=== PATIENT | female | born 1990 | race Caucasian/White ===

== ENCOUNTER → 2020-07-30 | Outpatient (CLI) | payer OTHER ==
[~2020-07-30] MED LIST: COLA100C5 PO; IBUP1TAB7 PO; OXYC1TAB23 PO; PERC5TAB12 PO; PRENTAB9 PO
--- NOTE | 2020-07-30 17:17 | REP ---
INDICATION: SPOTTING AFFECTING PREG IN 1ST TRIMESTER. COMPARISON: None. TECHNIQUE: Multiple transabdominal and endovaginal ultrasonographic images of the gravid uterus. FINDINGS: There is no intrauterine gestational sac. There is no identifiable pole. There is a normal size yolk sac measuring 3.3 mm in diameter. The mean gestational sac diameter is 0.8 cm. This corresponds to a gestational age of 4 weeks 5 days. By LMP the gestational age is 5 weeks 5 days with an LESTER of 03/27/2021. There is no subchorionic hematoma. There is a 1.8 cm right ovarian follicle, likely a corpus luteum. The left ovary is unremarkable. IMPRESSION: Four week 5 day intrauterine gestation. No pole is identified at this time, however there is a yolk sac. No subchorionic hematoma is identified. Right ovarian corpus luteum. <Electronically signed by Jamil Salcedo > 07/30/20 [id number]
== END ==
LOC: M WHC 13:43
PROVIDERS: ATTEND Obstetrics & Gynecology
DX: O26.851 Spotting complicating pregnancy, first trimester (principal); Z3A.01 Less than 8 weeks gestation of pregnancy

== ENCOUNTER → 2020-07-30 | Outpatient (REF) | payer OTHER | LOC: M PLALAB 08:41 | PROVIDERS: ATTEND Obstetrics & Gynecology | DX: O26.851 Spotting complicating pregnancy, first trimester (principal) ==

== ENCOUNTER → 2020-08-01 | Outpatient (CLI) | payer OTHER ==
[2020-08-01 09:51] LABS: HEMATOCRIT 41.1 % (36.0-47.0); HEMOGLOBIN 13.2 g/dl (12.0-15.5); MEAN CORPUSCULAR HEMOGLOBIN 28.8 pg (27.0-33.0); MEAN CORPUSCULAR HGB CONC 32.1 g/dl (32.0-36.5); MEAN CORPUSCULAR VOLUME 89.7 fl (80.0-96.0); PLATELET COUNT, AUTOMATED 237 10^3/uL (150-450); RED BLOOD COUNT 4.58 10^6/uL (4.00-5.40); WHITE BLOOD COUNT 7.4 10^3/uL (4.0-10.0)
[2020-08-01 10:15] LABS: HCG, SERUM QUALITATIVE NEGATIVE (NEGATIVE)
[2020-08-01 10:31] LABS: ALBUMIN 3.9 GM/DL (3.2-5.2); ALT/SGPT 22 U/L (12-78); BILIRUBIN,TOTAL 0.3 MG/DL (0.2-1.0); BLOOD UREA NITROGEN 13 MG/DL (7-18); CALCIUM LEVEL 8.9 MG/DL (8.5-10.1); CARBON DIOXIDE LEVEL 29 MEQ/L (21-32); CHLORIDE LEVEL 107 MEQ/L (98-107); GLOMERULAR FILTRATION RATE > 60.0 (>60); GLUCOSE, FASTING 83 MG/DL (70-100); HCG, SERUM QUANTITATIVE 22827 MIU/ML; POTASSIUM SERUM 4.7 MEQ/L (3.5-5.1); SODIUM LEVEL 139 MEQ/L (136-145); TOTAL PROTEIN 6.9 GM/DL (6.4-8.2)
== END ==
LOC: M LAB 09:29
PROVIDERS: ATTEND Obstetrics & Gynecology
DX: O26.851 Spotting complicating pregnancy, first trimester (principal); Z3A.00 Weeks of gestation of pregnancy not specified

== ENCOUNTER → 2020-09-13 | Outpatient (REF) | payer OTHER ==
[2020-09-13 14:11] LABS: HEMATOCRIT 40.7 % (36.0-47.0); HEMOGLOBIN 13.4 g/dl (12.0-15.5); MEAN CORPUSCULAR HEMOGLOBIN 29.9 pg (27.0-33.0); MEAN CORPUSCULAR HGB CONC 32.9 g/dl (32.0-36.5); MEAN CORPUSCULAR VOLUME 90.8 fl (80.0-96.0); PLATELET COUNT, AUTOMATED 232 10^3/uL (150-450); RED BLOOD COUNT 4.48 10^6/uL (4.00-5.40); WHITE BLOOD COUNT 8.7 10^3/uL (4.0-10.0)
[2020-09-13 15:18] LABS: CHLAMYDIA DNA AMPLIFICATION NEGATIVE (NEGATIVE); GC DNA AMPLIFICATION NEGATIVE (NEGATIVE)
[2020-09-13 15:34] LABS: HEPATITIS C VIRUS ABY INDEX < 0.0 INDEX (<0.8); HIV 1&2 SCREEN CENTAUR NEGATIVE (NEGATIVE)
== END ==
LOC: M PLALAB 10:03
PROVIDERS: ATTEND Advanced Practice Midwife
DX: O34.211 Maternal care for low transverse scar from previous cesarean delivery (principal)

== ENCOUNTER → 2020-10-19 | Outpatient (CLI) | payer OTHER | LOC: M WHC 20:01 | PROVIDERS: ATTEND Obstetrics & Gynecology | DX: Z53.29 Procedure and treatment not carried out because of patient's decision for other reasons (principal); Z3A.17 17 weeks gestation of pregnancy ==

== ENCOUNTER → 2020-11-08 | Outpatient (CLI) | payer OTHER ==
--- NOTE | 2020-11-08 10:40 | REP ---
INDICATION: ANATOMY. COMPARISON: 07/30/2020. TECHNIQUE: There are multiple sonographic images of the gravid uterus. FINDINGS: There is a single intrauterine gestation in a breech presentation. The placenta is anterior with grade 0 maturity. There is no placenta previa. The placental cord insertion is located centrally on the placenta. There is a three-vessel cord. The cervix measures 3.5 cm length. heart rate is 137 beats per minute. Amniotic fluid volume subjectively is normal. Composite ultrasound gestational age is 20 weeks 5 days with an LESTER of 03/23/2021. Gestational age by the 1st ultrasound is 20 weeks 1 day with an LESTER of 03/27/2021. Gestational age by LMP is 20 weeks 1 day with an LESTER of 03/27/2021. weight is 386 g/0 lb, 13 oz. This is the 85th percentile for 20 weeks 1 day. The following anatomic structures are identified and are unremarkable: Cranium, cavum septum pellucidum, falx, intracranial ventricles, choroid plexus, cerebellum, cisterna magna, facial profile, upper lip, cardiac rhythm, four-chamber heart, right and left cardiac ventricular outflow tracts, diaphragm, stomach, abdominal wall, right left kidneys, bladder, spine, right and left upper extremities, right left lower extremities and 3 vessel cord. No anomalies are identified. IMPRESSION: No anomalies are identified. <Electronically signed by Jamil Salcedo > 11/08/20 1032
== END ==
LOC: M WHC 08:47
PROVIDERS: ATTEND Obstetrics & Gynecology
DX: Z36.9 Encounter for antenatal screening, unspecified (principal); Z3A.20 20 weeks gestation of pregnancy

== ENCOUNTER → 2020-12-28 | Outpatient (REF) | payer OTHER ==
[2020-12-28 13:33] LABS: HEMOGLOBIN 13.5 g/dl (12.0-15.5); MEAN CORPUSCULAR HEMOGLOBIN 30.8 pg (27.0-33.0); MEAN CORPUSCULAR HGB CONC 32.9 g/dl (32.0-36.5); MEAN CORPUSCULAR VOLUME 93.4 fl (80.0-96.0); PLATELET COUNT, AUTOMATED 230 10^3/uL (150-450); RED BLOOD COUNT 4.39 10^6/uL (4.00-5.40); WHITE BLOOD COUNT 11.5 10^3/uL (4.0-10.0)
== END ==
LOC: M PLALAB 10:11
PROVIDERS: ATTEND Advanced Practice Midwife
DX: O34.219 Maternal care for unspecified type scar from previous cesarean delivery (principal); Z3A.00 Weeks of gestation of pregnancy not specified

== ENCOUNTER → 2021-03-02 | Outpatient (REF) | payer OTHER | LOC: M SFHCWAGY 13:16 | PROVIDERS: ATTEND Advanced Practice Midwife | DX: O34.211 Maternal care for low transverse scar from previous cesarean delivery (principal) ==

== ENCOUNTER 2021-03-11 23:35 | Inpatient (IN) | payer OTHER ==
[~2021-03-11] VITALS: Ht 162.6 cm; Wt 71.0 kg
[2021-03-12] VITALS (13 sets, daily range): BP systolic 118–166; BP diastolic 58–90
[2021-03-12] MEDS ORDERED: LACTATED RINGER'S 1000 ML IV STA (00:14)
[2021-03-12] MEDS ORDERED: OXYTOCIN DRIP 30 UNITS in IV 1 EA IV PRN (00:15)
[2021-03-12] MEDS ORDERED: OXYTOCIN DRIP 30 UNITS in IV 1 EA IV SCH ×2 (00:15→07:05)
[2021-03-12] MEDS ORDERED: LR 1,000 ML IV SCH (00:15)
[2021-03-12] MEDS ORDERED: METHYLERGONOVINE MALEATE 0.2 MG/ML VIAL (J2210) IM PRN (00:15)
[2021-03-12] MEDS ORDERED: LIDOCAINE 1% MDV 20ML VIAL INFIL PRN (00:15)
--- NOTE | 2021-03-12 00:36 | HPEPDOC ---
Obstetrical History & Physical General Date of Admission 03/11/2021 History of Present Illness Chief Complaint: LOF, term Information Provided By: Patient Age: 30 : 3 Term: 1 Pre-term: 0 Abortions: 1 Livin Care Care: Good Care Dating Final EDC: Mar 27, 2021 Final EDC by: LMP EGA at Admission: 37 (+5) Antepartum Course Pre- weight (lbs.): 134 Admission Weight (lbs.): 156 Past Medical History Past Obstetrical History : Past Obstetrical History: Primgravida (2016) Type of Delivery: Ceserean section (arrest of dilation) Sex of : Male (6#7) Complications: No CRM COORDINATOR History: Theraputic (2019 trisomy 13) Social History Marital Status: Family situation: Spouse/partner home * Smoker: non-smoker Alcohol: Denies Drugs: denies Abuse Violence Screening Have you been hit/kicked/slapp: No Have you been sexually assault: No Imunizations Tdap status: current Allergies Coded Allergies: No Known Allergies (Unverified , 06/19/16) Medications Scheduled No.137/Iron/Folic Acd ( Vitamin Tablet) 1 Tab Tab, 1 TAB PO DAILY Scheduled PRN Docusate Sodium (Colace) 100 Mg Cap, 100 MG PO QHSP PRN for CONSTIPATION Ibuprofen (Ibuprofen) 800 Mg Tab, 800 MG PO Q8HP PRN for PAIN Oxycodone HCl/Acetaminophen (Oxycodone-Acetaminophen 5-325) 1 Tab Tab, 1-2 TAB PO Q6HP PRN for PAIN Oxycodone HCl/Acetaminophen (Percocet 5-325 mg Tablet) 1 Tab Tab, 1-2 TAB PO Q6HP PRN for PAIN Physical Examination Physical Examination GENERAL: Alert and oriented times three. BREAST: . ABDOMEN: Gravid and non-tender to touch. FETUS: Is vertex (VTX) by sterile vaginal examination (SVE), fetus is vertex (VTX) by Nghia. EFW 7# HEART RATE: Regular rate and rhythm. LUNGS: Clear to auscultation (CTA). EXTREMITIES: No edema. No clonus. Deep tendon reflexes (DTRs) + 2. Vital Signs/I&O Vital Signs Date Time Temp Pulse Resp B/P (MAP) Pulse Ox O2 Delivery O2 Flow Rate FiO2 7/ 00:01 98.4 88 16 154/90 (111) Room Air Pertinent Laboratoy Data Blood Type: A+ RBC Antibody Screen: Negative HIV: Negative Hepatitis B: Negative Hepatitis C: Negative Rapid Plasma Reagin: Nonreactive Rubella: Immune Chlamydia/Gonorrhea: Negative Group B Streptococcus: Negative Glucose Tolerance Test: 96 Diag/Inter Therapy NIPT low risk Anatomy Ultrasound Ultrasound Date: Nov 08, 2020 Placenta Location: Anterior Normal Anatomy: Yes Placenta Previa: No Estimated Weight (grams): 386 (85%) Other Ultrasounds 07/30/2020 spotting. EGA 5w5d, no pole, no FH 08/25/2020 cw dates, +FH Steroid Therapy Steroid Therapy: No Vaginal Examination Dilation: Fingertip Effacement: 50% Station: -2 Cervical Consistency: Medium Cervical Position: Posterior (difficult exam due to guarding) Presentation: Cephalic presentation Assessment Heart Rate (FHR): 125 Variability: Moderate Accelerations: Positive Decelerations: None Tocometer Contractions: Yes Frequency: irregular Duration: less than 60 seconds Strength: palpated as mild Assessment/Plan Assessment Zaina is a 30-year-old (G)3 para (P)1-0-1-1 at 37+5 weeks by first trimester ultrasound. Presents to Labor and Delivery (L&D) with reports of spontaneous rupture of membranes 2129, clear fluid with pink tinge. Reports mild cramping. Good activity reported. Hx significant for prior at term, arrest of dilation with asynclitic presentation. Plan Admit and orient per consult Dr Mendoza Plastic Press Operator and consent. Pt and partner have been counseled on risks/benefits of repeat vs TOLAC. Desire TOLAC at this time Diet: clear liquids. Group B Streptococcus (GBS) negative. Labs and intravenous (IV) per unit protocol. Baseline preeclamptic labs obtained due to BP elevation on admit Counseled on Pitocin and augmentation of labor (IOL). Lactated Ringers (LR): Bolus 500 mL, then at 125 mL/hr. Plans epidural for labor coping Anticipate successful vaginal delivery after (). C-S as appropriate. Adrianna Sen CNM Mar 12, 2021 00:25
[2021-03-12] MEDS ORDERED: SERT-141 PO (00:44)
[2021-03-12 00:47] LABS: HEMATOCRIT 39.2 % (36.0-47.0); HEMOGLOBIN 13.6 g/dl (12.0-15.5); MEAN CORPUSCULAR HEMOGLOBIN 31.3 pg (27.0-33.0); MEAN CORPUSCULAR HGB CONC 34.7 g/dl (32.0-36.5); MEAN CORPUSCULAR VOLUME 90.1 fl (80.0-96.0); PLATELET COUNT, AUTOMATED 176 10^3/uL (150-450); RED BLOOD COUNT 4.35 10^6/uL (4.00-5.40); WHITE BLOOD COUNT 12.2 10^3/uL (4.0-10.0)
[2021-03-12 01:37] LABS: ALT/SGPT 21 U/L (12-78); BILIRUBIN,TOTAL 0.2 MG/DL (0.2-1.0); CREATININE FOR GFR 0.63 MG/DL (0.55-1.30); GLOMERULAR FILTRATION RATE > 60.0 (>60); LDH LACTATE DEHYDROGENASE 210 U/L (84-246); URIC ACID 4.8 MG/DL (2.6-6.0)
--- NOTE | 2021-03-12 02:00 | IPNPDOC ---
Text Note Date of Service The patient was seen on 03/12/21. NOTE Progress Upon return from bathroom, prolonged FH decel 90's-100's over 10 minutes. Returned to baseline with IV hydration and position change. UC mild irregular SVE unable to reach cervix due to maternal guarding, far posterior Subsequent decel following another UC to 100's - 110's over 5 minutes. Short accel associated with UC with return to 110's. Will observe and update Dr Mendoza VS,Aixa, I+O VSAixa, I+O Laboratory Tests 03/12/21 00:31 Vital Signs Date Time Temp Pulse Resp B/P (MAP) Pulse Ox O2 Delivery O2 Flow Rate FiO2 03/12/21 00:01 98.4 88 16 154/90 (111) Room Air Adrianna Sen CNM Mar 12, 2021 02:00
[2021-03-12] MEDS ORDERED: FENTANYL 2MCG/ML ROPIVACAINE 0.2% IN 0.9% NACL 100ML IVBAG As Ordered ONE (02:28)
[2021-03-12] MEDS ORDERED: LACTATED RINGER'S 1000 ML IV PRN (02:30)
[2021-03-12] MEDS ORDERED: EPIDURAL/PCA KEYS XX PRN (02:30)
[2021-03-12] MEDS ORDERED: ONDANSETRON 4MG/2ML VIAL IV PRN (02:30)
[2021-03-12] MEDS ORDERED: NALOXONE INJ 0.4MG/1ML VIAL (J2310 PER 1MG) IV PRN (02:30)
[2021-03-12] MEDS ORDERED: REFRIGERATOR IV KEYS XX PRN (02:30)
[2021-03-12] MEDS ORDERED: diphenhydrAMINE 50MG/ML VIAL (J1200) IV PRN (02:30)
[2021-03-12] MEDS ORDERED: ePHEDrine SULFATE 25 MG/5 ML(5MG/ML) SYRINGE IV PRN (02:30)
[2021-03-12] MEDS ORDERED: EPIDURAL COMMENT XX SCH (02:30)
[2021-03-12] MEDS ORDERED: FENTANYL/ROPIVACAINE/NACL BAG 100 ML EPIDURAL SCH (02:30)
--- NOTE | 2021-03-12 03:49 | IPNPDOC ---
Text Note Date of Service The patient was seen on 03/12/21. NOTE Progress Comfortable with epidural FH 120, Cat I episodes Cat II UC 2-4 minutes Copious clear fluid draining SVE FD/100/0 FSE applied due to inability to adequately trace FH Labor down. VS,Fishbone, I+O VS, Fishbone, I+O Laboratory Tests 03/12/21 00:31 Vital Signs Date Time Temp Pulse Resp B/P (MAP) Pulse Ox O2 Delivery O2 Flow Rate FiO2 03/12/21 03:20 96.6 68 120/64 (82) 03/12/21 00:01 16 Room Air Adrianna Sen CNM Mar 12, 2021 03:49
--- NOTE | 2021-03-12 07:03 | IPNPDOC ---
Text Note Date of Service The patient was seen on 03/12/21. NOTE Progress Multiple deep variable and early decels with pushing, Cat II tracing Dr Mendoza requested to assist delivery. See his note for delivery. VS,Fishbone, I+O VS, Fishbone, I+O Laboratory Tests 03/12/21 00:31 Vital Signs Date Time Temp Pulse Resp B/P (MAP) Pulse Ox O2 Delivery O2 Flow Rate FiO2 03/12/21 03:20 96.6 68 120/64 (82) 03/12/21 00:01 16 Room Air Adrianna Sen CNM Mar 12, 2021 07:03
[2021-03-12] MEDS ORDERED: METHYLERGONOVINE MALEATE 0.2 MG TAB PO PRN (07:05)
[2021-03-12] MEDS ORDERED: MOM 30ML SUSPENSION UDC PO PRN (07:05)
[2021-03-12] MEDS ORDERED: ACETAMINOPHEN TAB 650MG DOSE (2X325MG) PO PRN (07:05)
[2021-03-12] MEDS ORDERED: MEASLES,MUMPS,RUBELLA VACCINE INJ (MMR-II) (90707) SC SCH (07:05)
[2021-03-12] MEDS ORDERED: ACETAMINOPHEN 500 MG TAB PO PRN (07:05)
[2021-03-12] MEDS ORDERED: RHOGAM 300 MCG (1500 IU) INJ (J2790) IM SCH (07:05)
[2021-03-12] MEDS ORDERED: IBUPROFEN 600MG TAB PO PRN (07:05)
[2021-03-12] MEDS ORDERED: DOCUSATE SODIUM 100MG CAPSULE PO PRN (07:05)
[2021-03-12 07:06] LABS: CORD GAS ABE A -8.5; CORD GAS ABE V -7.7; CORD GAS HCO3 A 20.2 MEQ/L; CORD GAS HCO3 V 21.7 MEQ/L; CORD GAS O2 SAT A 66.7 %; CORD GAS O2 SAT V 79.2 %; CORD GAS PCO2 A 53.4 mmHg; CORD GAS PCO2 V 59.6 mmHg; CORD GAS PH A 7.195 UNITS; CORD GAS PH V 7.18 UNITS; CORD GAS PO2 A 31.4 mmHg; CORD GAS PO2 V 39.6 mmHg; CORD GAS SBC A 17.1 MEQ/L; CORD GAS TCO2 A 21.8 MEQ/L; CORD GAS TCO2 V 23.6 MEQ/L
--- NOTE | 2021-03-12 07:22 | DNPDOC ---
[facility] Delivery Note Delivery Note DATE OF DELIVERY: 03/12/21 TIME OF : 0629 GENDER: Male. APGARS: 6 and 8. WEIGHT: 3650 grams or 8 pounds 1ounces. LACERATIONS: 2MLL ANESTHESIA: epidural ESTIMATED BLOOD LOSS: 300ml COUNTS: 5 laparotomy sponges accounted for prior to after delivery. 3 sharps removed from delivery field. MODE OF DELIVERY: Vaginal after section, from a low vacuum assisted delivery. INDICATION: Nonreassuring tracing DELIVERY NOTE: On 03/12/2021 at 0629, Mrs. Mobley a 30-year-old 2 now para 2, had low vacuum-assisted vaginal delivery of a viable male infant, Apgars, 5 and 8 and weight 2970 g. Indication for operative delivery was nonreassuring tracing. This was also a vaginal after section. Bladder was previously emptied and position was confirmed with station of +3. Vacuum was placed and with one maternal pushing effort, head was delivered occiput anterior (OA). Vacuum release and delivery of the shoulders and corpus. was handed to mom with a good cry. Cord was clamped times two and was cut by support person under my direction. Placenta was then drained and delivered grossly intact. A premixed bag of 500 mL of normal saline with 30 units of Pitocin was then bolused along with uterine massage until the uterus was firm. On inspection there was a 2MLL that was repaired with 3-0 Vicryl after infusion with 1% lidocaine. On reinspection, cervix, vagina, perineum was grossly intact and hemostatic. Mom and baby in recovery on stable condition. The couples decided to name the son Rony SANTACRUZCHRISTOPHER MD. Mar 12, 2021 07:22
[2021-03-12] MEDS: PRENATAL VITAMINS CHEWABLE TABLET PO SCH (08:51)
[2021-03-12] MEDS: IBUPROFEN 800 MG TAB PO PRN (10:29)
[2021-03-13] MEDS: IBUPROFEN 800 MG TAB PO PRN ×2 (04:13→12:25)
[2021-03-13 06:00] VITALS: BP 121/58
[2021-03-13] MEDS: PRENATAL VITAMINS CHEWABLE TABLET PO SCH (08:09)
== END 2021-03-13 18:15 | disposition home or self-care (01) | DRG 807 ==
LOC: M LDO 23:35 → M LDI 03-12 00:59 → M OBS 03-12 08:49
PROVIDERS: ADMIT Advanced Practice Midwife; ATTEND Advanced Practice Midwife
PROC: 10D07Z6 Extraction of Products of Conception, Vacuum, Via Natural or Artificial Opening (ICD-10-PCS; principal; 2021-03-12)
PROC: 0KQM0ZZ Repair Perineum Muscle, Open Approach (ICD-10-PCS; 2021-03-12)
DX: O34.211 Maternal care for low transverse scar from previous cesarean delivery (principal); Z37.0 Single live birth; O70.1 Second degree perineal laceration during delivery; O76 Abnormality in fetal heart rate and rhythm complicating labor and delivery; Z3A.37 37 weeks gestation of pregnancy; F41.9 Anxiety disorder, unspecified; O99.344 Other mental disorders complicating childbirth

== ENCOUNTER → 2023-01-16 | Outpatient (CLI) | payer OTHER ==
[~2023-01-16] MED LIST changes: +SERT-141 PO
== END ==
LOC: M PLALAB 09:13
PROVIDERS: ATTEND Nurse Practitioner Adult Health
DX: S30.860A Insect bite (nonvenomous) of lower back and pelvis, initial encounter (principal); X58.XXXA Exposure to other specified factors, initial encounter; Y92.9 Unspecified place or not applicable

== ENCOUNTER → 2023-12-20 | Outpatient (CLI) | payer OTHER | LOC: M PLAIMG 14:55 | PROVIDERS: ATTEND Nurse Practitioner Adult Health | DX: M26.603 Bilateral temporomandibular joint disorder, unspecified (principal) ==